=== PATIENT | male | born 1950 ===

== ENCOUNTER 2017-02-12 06:45 | Day surgery (SDC) | payer MEDICARE | END 2017-02-12 10:38 | disposition home or self-care (01) | LOC: C.SDS 06:45 | DX: H25.11 Age-related nuclear cataract, right eye (principal) | CPT/HCPCS: 66984; 82948; J2250; J2405; J3010; J3470; J7120 ==

== ENCOUNTER 2017-02-26 06:39 | Day surgery (SDC) | payer MEDICARE, OTHER ==
[2017-02-06 09:07] VITALS: BMI 20.7
[~2017-02-26 06:39] MED LIST: Ciprofloxacin 0.3% OPTH SOLN OS SCH; Cyclopentolate 1% Opth (2 ml) OS SCH; Flurbiprofen 0.03% Opht SOLN OS SCH; Lactated Ringer's 500 ML IV ONE; Phenylephrine 2.5% Opht Soln OS SCH; Tropicamide 1% Opht SOLUTION OS SCH; acetaZOLAMIDE 500 mg SR Cap PO ONE
[2017-02-26] MEDS ORDERED: Povidone Iodine Ophthalmic 5% Soln ONE (07:30)
[2017-02-26] MEDS ORDERED: Lactated Ringer's 500 ML IV ONE (07:30)
[2017-02-26] MEDS ORDERED: Tobramycin/Dexamethasone OPHT OINT ONE (07:31)
[2017-02-26] MEDS ORDERED: Chondroitin/Hyaluronate Opth Syringe KIT (0.55 ml-0.5 ml) IO ONE (07:31)
[2017-02-26] MEDS ORDERED: Hyaluronidase Human, Recombi 150 U/ML VIAL ONE (07:31)
[2017-02-26] MEDS ORDERED: Carbachol 0.01% IO ONE (07:51)
[2017-02-26] MEDS ORDERED: Tetracaine 0.5% Ophth (OR ONLY) ONE (08:10)
[2017-02-26] MEDS ORDERED: Midazolam 2 MG/2 ML VIAL ONE (10:31)
[2017-02-26] MEDS: Lidocaine 2% Inj (20ml) ONE ×2 (10:36→11:00)
[2017-02-26 11:34] VITALS: O2SAT 100
[2017-02-26] MEDS ORDERED: acetaZOLAMIDE 500 mg SR Cap PO ONE (11:45)
[2017-02-26 12:18] VITALS: BP 122/60; PULSE 62; RESP 17; TEMP 97.8
--- NOTE | 2017-02-26 12:42 | OP ---
PROCEDURE DATE: 02/26/2017 PREOPERATIVE DIAGNOSIS: Cataract, left eye. POSTOPERATIVE DIAGNOSIS: Cataract, left eye. OPERATIVE PROCEDURE: Phacoemulsification, left eye with insertion of posterior chamber implant with utilization of capsular dye. SURGEON: Ghulam Connors MD COSURGEON: Joseph Epperson MD ANESTHESIA: Local with intravenous sedation. PROCEDURE: The patient was brought into the operating room and placed in supine position, prepped and draped in the usual fashion for ophthalmic surgery. Lid speculum inserted, lids and exposing globe. On inspection, there was noted to be a hypermature cataract. A side-port incision was made superiorly and inferiorly with disposable sharp blade. An air bubble was injected in the anterior chamber followed by capsular dye to stain the anterior capsule. The dye was irrigated out of the anterior chamber with balanced salt solution. The anterior chamber was deepened with Viscoat. A near clear corneal incision was made temporally with a 2.75-mm keratome. Capsulorrhexis was performed with Utrata forceps. Hydrodissection was carried out with balanced salt solution. The nucleus was then phacoemulsified. Remaining cortical fragments were aspirated with a split irrigation and aspiration system. The capsular sac was filled with Provisc. Posterior chamber lens was injected into the sac and rotated into horizontal position. Provisc was aspirated out of the anterior chamber. Pupil was constricted with Miochol. The wound was hydrated with balanced salt solution and found to be watertight. Topical Timoptic, Betadine, TobraDex ointment, and pressure patch were applied. The patient tolerated the procedure well. Ghulam Connors MD
== END 2017-02-26 12:18 | disposition home or self-care (01) ==
LOC: C.SDS 06:39
PROVIDERS: ATTEND Ophthalmology
DX: H26.9 Unspecified cataract (principal)
CPT/HCPCS: 66984; 82948; J2250; J3010; J3470; J7120; V2632